=== PATIENT | male | born 1965 | race African-American/Black ===

== ENCOUNTER 2019-07-08 13:58 | Emergency (ER) | payer MEDICAID | END 2019-07-08 16:36 | disposition left against medical advice (07) | LOC: ER 13:58 | DX: H57.89 Other specified disorders of eye and adnexa (principal); Z53.21 Procedure and treatment not carried out due to patient leaving prior to being seen by health care provider ==

== ENCOUNTER 2019-07-16 09:09 | Emergency (ER) | payer MEDICAID ==
[~2019-07-16] VITALS: Ht 165.1 cm; Wt 55.0 kg
[2019-07-16] MEDS ORDERED: FLUORESCEIN SODIUM 1MG/STRIP RIGHTEYE ONE (12:15)
[2019-07-16] MEDS ORDERED: TETRACAINE 0.5% OPHTH DROPS 4ML RIGHTEYE ONE (12:15)
[2019-07-16 14:04] LABS: BASOPHILS % 0.4 % (0.0-2.0); EOSINOPHILS % 0.7 % (0.0-5.0); HEMATOCRIT. 30.6 % (42.0-52.0); HEMOGLOBIN. 9.7 g/dL (14.0-18.0); LYMPHOCYTES % 7.3 % (20.0-50.0); MEAN CORPUSCULAR HEMOGLOBIN 25.3 pg (28.0-32.0); MEAN CORPUSCULAR VOLUME 80.2 fL (80.0-94.0); MEAN PLATELET VOLUME 6.9 fl (7.4-10.4); NEUTROPHILS % 79.6 % (40.0-76.0); PLATELET 251 x1000/uL (130-400); RED BLOOD CELL COUNT 3.82 mill/uL (4.7-6.1); RED CELL DISTRIBUTION WIDTH 21.7 % (11.6-14.6)
[2019-07-16 14:10] LABS: CHLORIDE 95 mEq/L (98-107); PROTHROMBIN TIME 10.3 sec (9.6-11.0)
[2019-07-16] MEDS ORDERED: CYCLOPENTOLATE HCL 1% OPHTH DROPS 2ML RIGHTEYE ONE (15:30)
[2019-07-16] MEDS ORDERED: MANNITOL 20% (20GM/100ML) BAG 500ML PREMIX IV ONE (15:30)
[2019-07-16] MEDS ORDERED: MANNITOL 20% 500 ML IV NR (15:45)
[2019-07-16 17:45] VITALS: BP 148/89
== END 2019-07-16 17:55 | disposition home or self-care (01) ==
LOC: ER 09:09
DX: H21.01 Hyphema, right eye (principal); F17.200 Nicotine dependence, unspecified, uncomplicated
CPT/HCPCS: 36415; 70486; 99284

== ENCOUNTER 2020-03-06 12:09 | Inpatient (IN) | payer MEDICAID ==
[~2020-03-06] VITALS: Ht 165.1 cm; Wt 44.9 kg
[2020-03-06] MEDS ORDERED: SODIUM CHLORIDE 0.9% 1,000 ML IV ONE ×2 (13:25→15:29)
[2020-03-06 14:57] LABS: HEMATOCRIT. 36.3 % (42.0-52.0); HEMOGLOBIN. 11.8 g/dL (14.0-18.0); MEAN CORPUSCULAR VOLUME 89.4 fL (80.0-94.0); RED BLOOD CELL COUNT 4.06 mill/uL (4.7-6.1); RED CELL DISTRIBUTION WIDTH 20.8 % (11.6-14.6)
[2020-03-06 15:04] LABS: CHLORIDE 87 mEq/L (98-107); INR 0.9; PROTHROMBIN TIME 10.2 sec (9.6-11.0)
[2020-03-06 15:35] LABS: PLATELET ESTIMATE NORMAL
[2020-03-06 15:36] LABS: MEAN PLATELET VOLUME 8.5 fl (7.4-10.4)
[2020-03-06 15:37] LABS: PLATELET 209 x1000/uL (130-400)
[2020-03-06] MEDS ORDERED: SODIUM CHLORIDE 0.9% 1,000 ML IV SCH (15:54)
[2020-03-06] MEDS ORDERED: KETOROLAC 15MG/ML VIAL IV PRN (16:00)
[2020-03-06] MEDS ORDERED: IPRATROPIUM/ALBUTEROL 0.5-3(2.5)MG/3ML NEB NEB PRN (16:00)
[2020-03-06] MEDS ORDERED: ACETAMINOPHEN 325MG TABLET PO PRN ×2 (16:00)
[2020-03-06] MEDS ORDERED: NITROGLYCERIN 0.4MG TABLET SL SL PRN (16:00)
[2020-03-06] MEDS ORDERED: MAGNESIUM/ALUMINUM HYDROXIDE/SIMETHICONE 30ML UDC PO PRN (16:00)
[2020-03-06] MEDS ORDERED: ZOLPIDEM TARTRATE 5MG TABLET PO PRN (16:00)
[2020-03-06] MEDS ORDERED: ENOXAPARIN 40MG/0.4ML SYR SUBCUT SCH (16:00)
[2020-03-06] MEDS ORDERED: ONDANSETRON HCL 4MG/2ML INJ IV PRN (16:00)
[2020-03-06] MEDS ORDERED: CLONIDINE 0.1MG TABLET PO PRN (16:00)
[2020-03-06] MEDS ORDERED: GUAIFENESIN 200MG/10ML SUGAR FREE UDC PO PRN (16:00)
[2020-03-06] MEDS ORDERED: DOCUSATE SODIUM 100MG CAPSULE PO PRN (16:00)
[2020-03-06 19:27] LABS: ETHANOL BLOOD < 10 mg/dL
[2020-03-06 19:29] LABS: LDL CHOLESTEROL 84 mg/dL (5-100); TOTAL IRON BINDING CAPACITY 260 ug/dL (250-450)
[2020-03-06 19:31] LABS: HDL CHOLESTEROL 63 mg/dL (40-59); T4 FREE 1.16 ng/dL (0.76-1.46)
[2020-03-06 19:42] LABS: FOLIC ACID (FOLATE) SERUM 12.8 ng/mL (>5.38)
[2020-03-06] MEDS ORDERED: LEVOFLOXACIN 500MG PREMIX 100 ML IV SCH (22:11)
[2020-03-07 05:17] LABS: HEMATOCRIT. 31.3 % (42.0-52.0); MEAN CORPUSCULAR HEMOGLOBIN 28.5 pg (28.0-32.0); MEAN CORPUSCULAR VOLUME 89.4 fL (80.0-94.0); MEAN PLATELET VOLUME 7.6 fl (7.4-10.4); PLATELET 193 x1000/uL (130-400)
[2020-03-07 05:26] LABS: CHLORIDE 96 mEq/L (98-107)
[2020-03-07 05:36] LABS: CREATINE KINASE 61 IU/L (39-308)
[2020-03-07 05:39] LABS: CREATINE KINASE MB FRACTION < 1.0 ng/mL (0.5-3.6)
[2020-03-07] MEDS ORDERED: POTASSIUM CHLORIDE 20MEQ TABLET SR PO ONE (07:00)
[2020-03-07 07:13] LABS: PLATELET ESTIMATE NORMAL
[2020-03-07] MEDS ORDERED: MAGNESIUM 4 G PREMIX 100 ML IV SCH (07:30)
[2020-03-07] MEDS ORDERED: POTASSIUM PHOS,M-BASIC-D-BASIC 30 MMOL in SODIUM CHLORIDE 0.9% 500 ML IV SCH (07:30)
[2020-03-07] MEDS ORDERED: KCL 20MEQ/100ML PREMIX 100 ML IV SCH (07:30)
[2020-03-07 08:34] VITALS: BP 135/83
[2020-03-07 08:56] VITALS: BP 135/83
[2020-03-07] MEDS: PANTOPRAZOLE SODIUM 40 MG/VIAL IV SCH (09:00)
[2020-03-07] MEDS ORDERED: ASPIRIN 81MG EC TABLET PO SCH (09:00)
[2020-03-07] MEDS: CLOPIDOGREL 75MG TABLET PO SCH (10:27)
[2020-03-07] MEDS: ZINC SULFATE 220 MG ( 50 ) CAPSULE PO SCH (10:27)
[2020-03-07] MEDS: ASCORBIC ACID 500 MG TABLET PO SCH ×2 (10:27→21:55)
[2020-03-07] MEDS: SODIUM CHL 0.9% + KCL 20MEQ/L 1,000 ML IV SCH ×2 (10:27→17:05)
[2020-03-07 16:08] VITALS: BP 138/77
[2020-03-07 16:34] LABS: CREATINE KINASE 59 IU/L (39-308)
[2020-03-07 16:35] LABS: CREATINE KINASE MB FRACTION < 1.0 ng/mL (0.5-3.6)
[2020-03-07 17:34] LABS: CLARITY URINE CLEAR (CLEAR); COLOR URINE DARK YELLOW (YELLOW); KETONES URINE 2+ (NEGATIVE); LEUKOCYTE ESTERASE URINE NEGATIVE (NEGATIVE); NITRITE URINE NEGATIVE (NEGATIVE); OCCULT BLOOD URINE NEGATIVE (NEGATIVE); PH URINE 5.5 (4.5-8.0); PROTEIN URINE NEGATIVE (NEGATIVE)
[2020-03-07 18:03] LABS: *AMPHETAMINES SCREEN URINE NEGATIVE (NEGATIVE); *BARBITURATES SCREEN URINE NEGATIVE (NEGATIVE)
[2020-03-07 18:04] LABS: *BENZODIAZEPINES SCREEN URINE NEGATIVE (NEGATIVE); *COCAINE SCREEN URINE NEGATIVE (NEGATIVE); CANNABINOID URINE SCREEN NEGATIVE (NEGATIVE); METHADONE URINE SCREEN NEGATIVE (NEGATIVE); OPIATES URINE SCREEN PRESUMTIVE POSITIVE (NEGATIVE); PHENCYCLIDINE URINE SCREEN NEGATIVE (NEGATIVE)
[2020-03-07 20:00] VITALS: BP 150/85
[2020-03-07] MEDS ORDERED: ZOLPIDEM TARTRATE 5MG TABLET PO PRN (21:00)
[2020-03-07] MEDS ORDERED: LEVOFLOXACIN 500MG PREMIX 100 ML IV SCH (21:00)
[2020-03-07] MEDS: LEVOFLOXACIN 500MG PREMIX 100 ML IV SCH (21:55)
[2020-03-08] VITALS: BP 152/81
[2020-03-08] MEDS: SODIUM CHL 0.9% + KCL 20MEQ/L 1,000 ML IV SCH ×3 (04:11→23:30)
[2020-03-08 07:52] LABS: HEMATOCRIT. 29.1 % (42.0-52.0); HEMOGLOBIN. 9.5 g/dL (14.0-18.0); MEAN CORPUSCULAR VOLUME 89.2 fL (80.0-94.0); MEAN PLATELET VOLUME 7.5 fl (7.4-10.4); PLATELET 215 x1000/uL (130-400); RED BLOOD CELL COUNT 3.27 mill/uL (4.7-6.1); RED CELL DISTRIBUTION WIDTH 20.2 % (11.6-14.6)
[2020-03-08 08:00] VITALS: BP 149/88
[2020-03-08 08:05] LABS: CHLORIDE 97 mEq/L (98-107)
[2020-03-08 08:11] LABS: PHOSPHORUS 2.7 mg/dL (2.5-4.9)
[2020-03-08] MEDS ORDERED: POTASSIUM CHLORIDE 20MEQ/PACKET PO NR (08:15)
[2020-03-08] MEDS: ZINC SULFATE 220 MG ( 50 ) CAPSULE PO SCH (08:50)
[2020-03-08] MEDS: ASCORBIC ACID 500 MG TABLET PO SCH ×2 (08:50→20:46)
[2020-03-08] MEDS: CLOPIDOGREL 75MG TABLET PO SCH (08:50)
[2020-03-08] MEDS: PANTOPRAZOLE SODIUM 40 MG/VIAL IV SCH (08:50)
[2020-03-08 10:25] LABS: PLATELET ESTIMATE NORMAL
[2020-03-08 12:00] VITALS: BP 145/87
[2020-03-08] MEDS ORDERED: KCL 20MEQ/100ML PREMIX 100 ML IV SCH (13:00)
[2020-03-08 16:00] VITALS: BP 140/80
[2020-03-08 20:01] VITALS: BP 166/85
[2020-03-08] MEDS: LEVOFLOXACIN 500MG PREMIX 100 ML IV SCH (20:46)
[2020-03-09] VITALS: BP 142/82
[2020-03-09 04:00] VITALS: BP 134/83
[2020-03-09] MEDS: ZINC SULFATE 220 MG ( 50 ) CAPSULE PO SCH (09:24)
[2020-03-09] MEDS: ASCORBIC ACID 500 MG TABLET PO SCH (09:24)
[2020-03-09] MEDS: PANTOPRAZOLE SODIUM 40 MG/VIAL IV SCH (09:24)
[2020-03-09] MEDS: CLOPIDOGREL 75MG TABLET PO SCH (09:24)
[2020-03-09] MEDS: SODIUM CHL 0.9% + KCL 20MEQ/L 1,000 ML IV SCH (09:30)
[2020-03-09] MEDS ORDERED: LEVOFLOXACIN 500MG TABLET PO SCH (11:00)
[2020-03-09 12:49] LABS: CHLORIDE 102 mEq/L (98-107)
[2020-03-09 12:54] LABS: PHOSPHORUS 1.4 mg/dL (2.5-4.9)
[2020-03-09 15:27] VITALS: BP 131/81
== END 2020-03-09 16:05 | disposition home or self-care (01) | DRG 720 ==
LOC: ER 12:23 → 6WST 15:46 → EDBEDREQ 15:56 → ENRESERV 03-07 07:45
PROVIDERS: ADMIT Internal Medicine; ATTEND Internal Medicine
DX: A41.9 Sepsis, unspecified organism (principal); E44.0 Moderate protein-calorie malnutrition; E87.1 Hypo-osmolality and hyponatremia; D63.8 Anemia in other chronic diseases classified elsewhere; R26.2 Difficulty in walking, not elsewhere classified; R07.89 Other chest pain; F10.10 Alcohol abuse, uncomplicated; F17.210 Nicotine dependence, cigarettes, uncomplicated; Z79.02 Long term (current) use of antithrombotics/antiplatelets; Z68.1 Body mass index [BMI] 19.9 or less, adult; Z71.41 Alcohol abuse counseling and surveillance of alcoholic
CPT/HCPCS: 36415; 70551; 71045; 80053; 80061; 80305; 80320; 81003; 82550; 82553; 82607; 82746; 83036; 83540; 83550; 83605; 83735; 84100; 84300; 84439; 84443; 84484; 85025; 93005; 93970; 97162; 97165; 99285; C9113; J1956; J3475; J3480; J3490; J7030; J7040; G0480

== ENCOUNTER 2020-08-07 09:33 | Inpatient (IN) | payer MEDICAID ==
[~2020-08-07] VITALS: Ht 165.1 cm; Wt 44.9 kg
[2020-08-07 10:30] LABS: HEMATOCRIT. 34.4 % (42.0-52.0); HEMOGLOBIN. 11.2 g/dL (14.0-18.0); MEAN CORPUSCULAR HEMOGLOBIN 29.9 pg (28.0-32.0); MEAN CORPUSCULAR VOLUME 91.8 fL (80.0-94.0); MEAN PLATELET VOLUME 7.9 fl (7.4-10.4); PLATELET 166 x1000/uL (130-400); RED BLOOD CELL COUNT 3.75 mill/uL (4.7-6.1); RED CELL DISTRIBUTION WIDTH 21.1 % (11.6-14.6)
[2020-08-07 10:36] LABS: CHLORIDE 85 mEq/L (98-107)
[2020-08-07 10:38] LABS: PROTHROMBIN TIME 10.4 sec (9.6-11.0)
[2020-08-07 10:57] LABS: CARBAMAZEPINE < 0.5 ug/mL (4-12); PHENOBARBITAL < 2.1 ug/mL (15.0-40.0); VALPROIC ACID < 3.0 ug/mL (50-100)
[2020-08-07 10:59] LABS: HCG SCREEN NEGATIVE
[2020-08-07 11:04] LABS: PLATELET ESTIMATE NORMAL
[2020-08-07] MEDS ORDERED: POTASSIUM CHLORIDE INJ 40 MEQ in DEXT 5% WATER 250 ML IV NR (12:00)
[2020-08-07] MEDS ORDERED: POTASSIUM CHLORIDE 20MEQ TABLET SR PO NR ×2 (12:00→16:30)
[2020-08-07] MEDS ORDERED: SODIUM CHLORIDE 0.9% 1,000 ML IV ONE (12:19)
[2020-08-07] MEDS ORDERED: THIAMINE HCL 100MG TABLET PO NR (12:30)
[2020-08-07] MEDS ORDERED: MAGNESIUM 2 G PREMIX 50 ML IV ONE (13:45)
[2020-08-07] MEDS ORDERED: LORAZEPAM 2MG/ML CPJ IV PRN (16:30)
[2020-08-07] MEDS ORDERED: DOCUSATE SODIUM 100MG CAPSULE PO PRN (16:30)
[2020-08-07] MEDS ORDERED: IPRATROPIUM/ALBUTEROL 0.5-3(2.5)MG/3ML NEB NEB PRN (16:30)
[2020-08-07] MEDS ORDERED: GUAIFENESIN 200MG/10ML SUGAR FREE UDC PO PRN (16:30)
[2020-08-07] MEDS ORDERED: CEFTRIAXONE 1 G PREMIX 50 ML IV SCH ×2 (16:30→17:00)
[2020-08-07] MEDS ORDERED: ONDANSETRON HCL 4MG/2ML INJ IV PRN (16:30)
[2020-08-07] MEDS ORDERED: NA PHOS,M-B/NA PHOS,DI-BA ENEMA 118ML PR PRN (16:30)
[2020-08-07] MEDS ORDERED: NITROGLYCERIN 0.4MG TABLET SL SL PRN (16:30)
[2020-08-07] MEDS ORDERED: ACETAMINOPHEN 325MG TABLET PO PRN ×2 (16:30)
[2020-08-07] MEDS ORDERED: KETOROLAC 15MG/ML VIAL IV PRN (16:40)
[2020-08-07] MEDS ORDERED: MVI, ADULT NO.1 10 ML, FOLIC ACID 1 MG, THIAMINE HCL 100 MG in SODIUM CHLORIDE 0.9% 1,0... IV SCH ×4 (17:00)
[2020-08-07 17:03] LABS: TOTAL IRON BINDING CAPACITY 367 ug/dL (250-450)
[2020-08-07] MEDS: DILTIAZEM HCL 60MG TABLET PO SCH (17:17)
[2020-08-07 17:24] LABS: FOLIC ACID (FOLATE) SERUM 4.8 ng/mL (>5.38)
[2020-08-07] MEDS: ENOXAPARIN 40MG/0.4ML SYR SUBCUT SCH (17:57)
[2020-08-07] MEDS ORDERED: LEVOFLOXACIN 500MG PREMIX 100 ML IV SCH (18:00)
[2020-08-07] MEDS ORDERED: ZOLPIDEM TARTRATE 5MG TABLET PO PRN (20:00)
[2020-08-07 21:00] VITALS: BP 145/87
[2020-08-07 22:17] VITALS: BP 145/87
[2020-08-07] MEDS: ASCORBIC ACID 500 MG TABLET PO SCH (23:02)
[2020-08-07] MEDS: FAMOTIDINE 20MG TABLET PO SCH (23:02)
[2020-08-08] VITALS: BP 124/79
[2020-08-08 00:10] LABS: CREATINE KINASE 442 IU/L (39-308)
[2020-08-08 00:12] LABS: CREATINE KINASE MB FRACTION 1.1 ng/mL (0.5-3.6)
[2020-08-08] MEDS: DILTIAZEM HCL 60MG TABLET PO SCH ×4 (00:46→17:45)
[2020-08-08 04:00] VITALS: BP 109/74
[2020-08-08 08:00] VITALS: BP 111/73
[2020-08-08] MEDS: FAMOTIDINE 20MG TABLET PO SCH ×2 (08:28→21:39)
[2020-08-08] MEDS: ZINC SULFATE 220 MG ( 50 ) CAPSULE PO SCH (08:28)
[2020-08-08] MEDS: ASCORBIC ACID 500 MG TABLET PO SCH ×2 (08:28→21:39)
[2020-08-08 10:04] LABS: CHLORIDE 94 mEq/L (98-107)
[2020-08-08 10:05] LABS: BASOPHILS % 0.6 % (0.0-2.0); EOSINOPHILS % 0.6 % (0.0-5.0); HEMATOCRIT. 30.6 % (42.0-52.0); HEMOGLOBIN. 9.9 g/dL (14.0-18.0); LYMPHOCYTES % 10.9 % (20.0-50.0); MEAN CORPUSCULAR VOLUME 93.2 fL (80.0-94.0); MEAN PLATELET VOLUME 7.6 fl (7.4-10.4); MONOCYTES % 14.8 % (2.0-8.0); NEUTROPHILS % 73.1 % (40.0-76.0); PLATELET 141 x1000/uL (130-400); RED BLOOD CELL COUNT 3.28 mill/uL (4.7-6.1); RED CELL DISTRIBUTION WIDTH 19.9 % (11.6-14.6)
[2020-08-08 10:17] LABS: CREATINE KINASE 678 IU/L (39-308)
[2020-08-08 10:19] LABS: CREATINE KINASE MB FRACTION < 1.0 ng/mL (0.5-3.6)
[2020-08-08 10:21] LABS: PHOSPHORUS 0.8 mg/dL (2.5-4.9)
[2020-08-08] MEDS: CHLORDIAZEPOXIDE 25MG CAPSULE PO SCH ×3 (10:57→21:39)
[2020-08-08] MEDS: FOLIC ACID 1MG TABLET PO SCH (10:57)
[2020-08-08 12:00] VITALS: BP 142/71
[2020-08-08] MEDS ORDERED: SODIUM PHOS,M-BASIC-D-BASIC 30 MM in DEXT 5% WATER 500 ML IV ONE (12:00)
[2020-08-08] MEDS: LEVOFLOXACIN 500MG TABLET PO SCH (13:00)
[2020-08-08 16:00] VITALS: BP 119/90
[2020-08-08] MEDS: CEFTRIAXONE 1,000 MG in DEXTROSE 5% WATER 50 ML IV SCH (17:39)
[2020-08-08] MEDS: ENOXAPARIN 40MG/0.4ML SYR SUBCUT SCH (17:40)
[2020-08-08 20:00] VITALS: BP 139/91
[2020-08-09] VITALS: BP 140/74
[2020-08-09] MEDS: DILTIAZEM HCL 60MG TABLET PO SCH ×5 (01:28→18:43)
[2020-08-09 04:00] VITALS: BP 139/96
[2020-08-09 04:27] LABS: CLARITY URINE CLEAR (CLEAR); COLOR URINE YELLOW (YELLOW); KETONES URINE 1+ (NEGATIVE); LEUKOCYTE ESTERASE URINE NEGATIVE (NEGATIVE); NITRITE URINE NEGATIVE (NEGATIVE); OCCULT BLOOD URINE NEGATIVE (NEGATIVE); PROTEIN URINE NEGATIVE (NEGATIVE); SPECIFIC GRAVITY URINE 1.015 (1.005-1.030)
[2020-08-09 04:37] LABS: *AMPHETAMINES SCREEN URINE NEGATIVE (NEGATIVE); *BARBITURATES SCREEN URINE NEGATIVE (NEGATIVE); *BENZODIAZEPINES SCREEN URINE NEGATIVE (NEGATIVE); *COCAINE SCREEN URINE NEGATIVE (NEGATIVE)
[2020-08-09 04:38] LABS: CANNABINOID URINE SCREEN NEGATIVE (NEGATIVE); METHADONE URINE SCREEN NEGATIVE (NEGATIVE); OPIATES URINE SCREEN NEGATIVE (NEGATIVE); PHENCYCLIDINE URINE SCREEN NEGATIVE (NEGATIVE)
[2020-08-09] MEDS: CHLORDIAZEPOXIDE 25MG CAPSULE PO SCH ×5 (06:00→20:47)
[2020-08-09 08:00] VITALS: BP 128/88
[2020-08-09] MEDS: FAMOTIDINE 20MG TABLET PO SCH ×3 (08:44→20:47)
[2020-08-09] MEDS: ASCORBIC ACID 500 MG TABLET PO SCH ×3 (08:44→20:47)
[2020-08-09] MEDS: ZINC SULFATE 220 MG ( 50 ) CAPSULE PO SCH ×2 (08:44→08:52)
[2020-08-09] MEDS: THIAMINE HCL 100MG TABLET PO SCH ×2 (08:45→08:52)
[2020-08-09] MEDS: FOLIC ACID 1MG TABLET PO SCH ×2 (08:45→08:52)
[2020-08-09] MEDS: LEVOFLOXACIN 500MG TABLET PO SCH (11:00)
[2020-08-09 12:00] VITALS: BP 135/86
[2020-08-09 16:00] VITALS: BP 111/79
[2020-08-09] MEDS: ENOXAPARIN 40MG/0.4ML SYR SUBCUT SCH (18:43)
[2020-08-09] MEDS: CEFTRIAXONE 1,000 MG in DEXTROSE 5% WATER 50 ML IV SCH (18:43)
[2020-08-09 20:00] VITALS: BP 124/82
[2020-08-10] VITALS: BP 93/57
[2020-08-10 04:00] VITALS: BP 100/64
[2020-08-10] MEDS: DILTIAZEM HCL 60MG TABLET PO SCH ×4 (05:37→17:01)
[2020-08-10] MEDS: CHLORDIAZEPOXIDE 25MG CAPSULE PO SCH (05:44)
[2020-08-10 08:00] VITALS: BP 87/61
[2020-08-10] MEDS: FAMOTIDINE 20MG TABLET PO SCH ×2 (10:13→20:55)
[2020-08-10] MEDS: THIAMINE HCL 100MG TABLET PO SCH (10:13)
[2020-08-10] MEDS: FOLIC ACID 1MG TABLET PO SCH (10:13)
[2020-08-10] MEDS: ASCORBIC ACID 500 MG TABLET PO SCH ×2 (10:13→20:55)
[2020-08-10] MEDS: ZINC SULFATE 220 MG ( 50 ) CAPSULE PO SCH (10:13)
[2020-08-10] MEDS: LEVOFLOXACIN 500MG TABLET PO SCH (10:14)
[2020-08-10 10:20] LABS: CHLORIDE 95 mEq/L (98-107)
[2020-08-10 10:27] LABS: PHOSPHORUS 3.9 mg/dL (2.5-4.9)
[2020-08-10 12:00] VITALS: BP 88/55
[2020-08-10] MEDS: CHLORDIAZEPOXIDE 10MG CAPSULE PO SCH ×2 (14:00→20:55)
[2020-08-10 16:00] VITALS: BP 89/59
[2020-08-10] MEDS: ENOXAPARIN 40MG/0.4ML SYR SUBCUT SCH (17:00)
[2020-08-10] MEDS: CEFTRIAXONE 1,000 MG in DEXTROSE 5% WATER 50 ML IV SCH (17:28)
[2020-08-10 20:00] VITALS: BP 92/63
[2020-08-11] VITALS: BP 110/71
[2020-08-11 04:00] VITALS: BP 101/71
[2020-08-11] MEDS: DILTIAZEM HCL 60MG TABLET PO SCH ×4 (05:26→17:39)
[2020-08-11] MEDS: CHLORDIAZEPOXIDE 10MG CAPSULE PO SCH (05:27)
[2020-08-11 07:41] LABS: HEMATOCRIT. 30.5 % (42.0-52.0); HEMOGLOBIN. 9.8 g/dL (14.0-18.0); MEAN CORPUSCULAR HEMOGLOBIN 29.7 pg (28.0-32.0); MEAN CORPUSCULAR VOLUME 92.6 fL (80.0-94.0); MEAN PLATELET VOLUME 7.8 fl (7.4-10.4); PLATELET 187 x1000/uL (130-400); RED BLOOD CELL COUNT 3.29 mill/uL (4.7-6.1); RED CELL DISTRIBUTION WIDTH 20.8 % (11.6-14.6)
[2020-08-11 07:44] LABS: CHLORIDE 96 mEq/L (98-107)
[2020-08-11 07:55] LABS: PHOSPHORUS 3.5 mg/dL (2.5-4.9)
[2020-08-11 08:00] VITALS: BP 102/64
[2020-08-11] MEDS ORDERED: POTASSIUM CHLORIDE 20MEQ TABLET SR PO NR (09:00)
[2020-08-11] MEDS: ZINC SULFATE 220 MG ( 50 ) CAPSULE PO SCH (09:09)
[2020-08-11] MEDS: FOLIC ACID 1MG TABLET PO SCH (09:09)
[2020-08-11] MEDS: ASCORBIC ACID 500 MG TABLET PO SCH ×2 (09:09→21:23)
[2020-08-11] MEDS: FAMOTIDINE 20MG TABLET PO SCH ×2 (09:09→21:23)
[2020-08-11] MEDS: THIAMINE HCL 100MG TABLET PO SCH (09:09)
[2020-08-11] MEDS ORDERED: MAGNESIUM 2 G PREMIX 50 ML IV NR (11:30)
[2020-08-11 12:00] VITALS: BP 102/64
[2020-08-11] MEDS: LEVOFLOXACIN 500MG TABLET PO SCH (12:07)
[2020-08-11] MEDS: CHLORDIAZEPOXIDE 5 MG CAPSULE PO SCH ×2 (14:30→21:23)
[2020-08-11 16:00] VITALS: BP 105/71
[2020-08-11 16:24] LABS: PLATELET ESTIMATE NORMAL
[2020-08-11] MEDS: ENOXAPARIN 40MG/0.4ML SYR SUBCUT SCH (17:36)
[2020-08-11] MEDS: CEFTRIAXONE 1,000 MG in DEXTROSE 5% WATER 50 ML IV SCH (17:36)
[2020-08-11 20:00] VITALS: BP 101/66
[2020-08-12] VITALS: BP 99/68
[2020-08-12] MEDS: DILTIAZEM HCL 60MG TABLET PO SCH ×3 (00:37→12:00)
[2020-08-12 04:00] VITALS: BP 104/69
[2020-08-12] MEDS: CHLORDIAZEPOXIDE 5 MG CAPSULE PO SCH (06:00)
[2020-08-12 08:00] VITALS: BP 101/64
[2020-08-12] MEDS: ZINC SULFATE 220 MG ( 50 ) CAPSULE PO SCH (08:21)
[2020-08-12] MEDS: THIAMINE HCL 100MG TABLET PO SCH (08:21)
[2020-08-12] MEDS: FOLIC ACID 1MG TABLET PO SCH (08:21)
[2020-08-12] MEDS: ASCORBIC ACID 500 MG TABLET PO SCH (08:21)
[2020-08-12] MEDS: FAMOTIDINE 20MG TABLET PO SCH (08:22)
[2020-08-12 08:52] LABS: CHLORIDE 99 mEq/L (98-107)
[2020-08-12 08:59] LABS: PHOSPHORUS 3.2 mg/dL (2.5-4.9)
[2020-08-12 12:00] VITALS: BP 97/64
[2020-08-12 13:38] VITALS: BP 97/64
== END 2020-08-12 15:35 | disposition home or self-care (01) | DRG 720 ==
LOC: ER 09:47 → 5WST 14:07 → ENRESERV 19:13
PROVIDERS: ADMIT Internal Medicine; ATTEND Internal Medicine
DX: A41.9 Sepsis, unspecified organism (principal); D63.8 Anemia in other chronic diseases classified elsewhere; E87.1 Hypo-osmolality and hyponatremia; E87.6 Hypokalemia; R56.9 Unspecified convulsions; I10 Essential (primary) hypertension; R65.20 Severe sepsis without septic shock; R55 Syncope and collapse; I45.81 Long QT syndrome; E83.39 Other disorders of phosphorus metabolism; F10.139 Alcohol abuse with withdrawal, unspecified; E43 Unspecified severe protein-calorie malnutrition
CPT/HCPCS: 36415; 71045; 80053; 80156; 80165; 80184; 80185; 80305; 80307; 80320; 80329; 81003; 82550; 82553; 82607; 82746; 82962; 83540; 83550; 83605; 83735; 84100; 84484; 84703; 85025; 93005; 93970; 96365; 99285; J0696; J1650; J1956; J2060; J3411; J3475; J3480; J3490; J7030; J7060; G0480